=== PATIENT | female | born 1985 | race Hispanic/Latino ===

== ENCOUNTER 2024-11-07 16:09 | Day surgery (SDC) | payer SELFPAY ==
[2024-11-07] MEDS ORDERED: hydrALAZINE 20 MG/ML VIAL SLOW IVP PRN (17:04)
[2024-11-07 17:22] LABS: Glucose, Urine (Dipstick) Normal (Negative); Leukocyte Negative (Negative); Protein, Urine (Dipstick) Negative (Neg-Trace); Specific Gravity, Urine 1.010 (1.005-1.030)
[2024-11-07 17:27] VITALS: BMI 24.2
[2024-11-07 17:47] LABS: Fetal Membranes Rupture No Membranes Rupture (No Rupture)
[2024-11-07] MEDS ORDERED: Ondansetron PF 4 MG/2 ML Vial IVP SCH (18:00)
[2024-11-07] MEDS: Acetaminophen 500 MG TAB PO SCH (19:32)
== END 2024-11-07 20:30 | disposition home or self-care (01) ==
LOC: CSHLD/OP 16:09
PROVIDERS: ATTEND Obstetrics & Gynecology
DX: O47.03 False labor before 37 completed weeks of gestation, third trimester (principal); Z03.71 Encounter for suspected problem with amniotic cavity and membrane ruled out; O09.523 Supervision of elderly multigravida, third trimester; O34.211 Maternal care for low transverse scar from previous cesarean delivery; Z3A.35 35 weeks gestation of pregnancy; Z87.59 Personal history of other complications of pregnancy, childbirth and the puerperium; Z88.1 Allergy status to other antibiotic agents; Z88.0 Allergy status to penicillin; Z88.8 Allergy status to other drugs, medicaments and biological substances; Z79.899 Other long term (current) drug therapy
CPT/HCPCS: 76815; 81003; 84112; 87480; 87510; 87660; 96360; 96361; 99285

== ENCOUNTER 2024-11-30 13:34 | Day surgery (SDC) | payer SELFPAY ==
[2024-11-30] MEDS ORDERED: Acetaminophen 500 MG TAB PO ONE (14:34)
[2024-11-30] MEDS ORDERED: hydrALAZINE 20 MG/ML VIAL SLOW IVP PRN (14:34)
[2024-11-30] MEDS ORDERED: Ondansetron PF 4 MG/2 ML Vial IVP PRN (14:34)
[2024-11-30 15:08] VITALS: BMI 27.8
== END 2024-11-30 16:03 | disposition home or self-care (01) ==
LOC: CSHLD/OP 13:34
PROVIDERS: ATTEND Obstetrics & Gynecology
DX: O47.1 False labor at or after 37 completed weeks of gestation (principal); O99.891 Other specified diseases and conditions complicating pregnancy; R51.9 Headache, unspecified; O09.523 Supervision of elderly multigravida, third trimester; O34.211 Maternal care for low transverse scar from previous cesarean delivery; Z3A.38 38 weeks gestation of pregnancy; Z88.1 Allergy status to other antibiotic agents; Z88.0 Allergy status to penicillin; Z91.010 Allergy to peanuts; Z88.8 Allergy status to other drugs, medicaments and biological substances; Z79.899 Other long term (current) drug therapy
CPT/HCPCS: 96360; 99284

== ENCOUNTER 2024-12-01 10:12 | Inpatient (IN) | payer MEDICAID, OTHER, SELFPAY ==
[2024-11-30 12:45] LABS: Hematocrit 31.7 % (34.9-44.5); Hemoglobin 9.9 g/dL (12.0-15.5); Platelet Count 226 10x3/uL (150-450)
[2024-11-30 13:16] LABS: Syphilis Antibody Index 0.05 S/CO (<1.00 Non-Reactive)
[2024-11-30 13:17] LABS: HIV (1/2) Antibody/Antigen Non-Reactive (NonReactive); HIV 1/2 INDEX 0.09 S/CO (<1.00); Hep B Surf Ag Non-Reactive S/CO (NonReactive)
[~2024-12-01 10:12] MED LIST: Bicitra 30 ML UDCUP PO PRN; Ondansetron PF 4 MG/2 ML Vial IVP PRN; hydrALAZINE 20 MG/ML VIAL SLOW IVP PRN
[2024-12-01 11:42] VITALS: BMI 26.1
[2024-12-01] MEDS: Acetaminophen 325 MG TAB PO SCH (11:58)
[2024-12-01] MEDS: Famotidine/PF 20 mg/2ml Vial SLOW IVP PRN (12:01)
[2024-12-01] MEDS ORDERED: Clindamycin/D5W 900 MG in Premix 1 BAG IVPB SCH (12:30)
[2024-12-01] MEDS ORDERED: diphenhydrAMINE 50 MG/ML VIAL IVP PRN (12:33)
[2024-12-01] MEDS ORDERED: Ondansetron PF 4 MG/2 ML Vial IVP PRN ×3 (12:33→13:39)
[2024-12-01] MEDS ORDERED: HYDROmorphone 0.5 MG/0.5 ML SYRINGE SLOW IVP PRN (12:33)
[2024-12-01] MEDS ORDERED: Meperidine HCl/PF 25 MG (1 mL) VIAL SLOW IVP PRN (12:33)
[2024-12-01] MEDS ORDERED: Ketorolac Tromethamine 30 MG (1 mL) VIAL IVP PRN (12:33)
[2024-12-01] MEDS ORDERED: Communication Order-Pharmacy FS SCH (12:45)
[2024-12-01] MEDS ORDERED: Ketorolac Tromethamine 30 MG (1 mL) VIAL IVP SCH (12:45)
[2024-12-01] MEDS ORDERED: Simethicone Chewable 80 MG TAB PO PRN (13:39)
[2024-12-01] MEDS ORDERED: hydrALAZINE 20 MG/ML VIAL SLOW IVP PRN (13:39)
[2024-12-01] MEDS ORDERED: Oxytocin 30 units/NS 500 ML 500 ML IV SCH (13:45)
[2024-12-01] MEDS: Oxytocin 30 units/NS 500 ML 500 ML IV SCH (14:19)
[2024-12-01] MEDS ORDERED: HYDROcodone/Acetaminophen 10/325 mg Tablet PO PRN (14:22)
[2024-12-01] MEDS: Oxytocin 10 UNITS/ML VIAL ONE (16:20)
[2024-12-01] MEDS: PHENYLEPHRINE-NS 100 MCG/ML 10 ML SYRINGE ONE (16:20)
[2024-12-01] MEDS: Erythromycin Base 0.5% Oint 1 GM TUBE ONE (16:21)
[2024-12-01] MEDS: Ondansetron PF 4 MG/2 ML Vial ONE (16:21)
[2024-12-01] MEDS: Methylergonovine 0.2 MG TAB PO SCH (16:22)
[2024-12-01] MEDS: Ketorolac Tromethamine 30 MG (1 mL) VIAL ONE (16:22)
[2024-12-01] MEDS: Boostrix 0.5 ML (Tdap) VIAL (>/=7 yrs of age) IM ONE (16:23)
[2024-12-01] MEDS: Gentamicin Sulfate 100 MG in Premix 1 BAG IVPB SCH (16:50)
[2024-12-01] MEDS: Ketorolac Tromethamine 30 MG (1 mL) VIAL IVP PRN (19:50)
[2024-12-02] MEDS ORDERED: Acetaminophen 325 MG TAB PO PRN (00:45)
[2024-12-02 04:19] LABS: Hematocrit 29.7 % (34.9-44.5); Hemoglobin 9.6 g/dL (12.0-15.5); Mean Corpuscular Hemoglobin 25.3 pg (27.0-33.0); Mean Corpuscular Volume 78.4 fL (81.6-98.3); Platelet Count 183 10x3/uL (150-450); Red Blood Cell (RBC) Count 3.79 10x6/uL (3.90-5.03); White Blood Cell (WBC) Count 7.40 10x3/uL (3.5-10.5)
[2024-12-02] MEDS ORDERED: Sertraline 25 MG TAB PO SCH (09:00)
[2024-12-02] MEDS: HYDROcodone/Acetaminophen 10/325 mg Tablet PO PRN (09:15)
[2024-12-02] MEDS: Ibuprofen 800 MG TAB PO SCH (21:43)
[2024-12-03 08:27] VITALS: BP 111/58; TEMP 99
[2024-12-03] MEDS: Pantoprazole 40 MG DR.TAB PO SCH (09:43)
== END 2024-12-03 12:05 | disposition home or self-care (01) | DRG 788 ==
LOC: CSHANTE 10:12 → CSHLD 13:58 → CSHPED 15:45
PROVIDERS: ADMIT Obstetrics & Gynecology; ATTEND Obstetrics & Gynecology
PROC: 4A1HXCZ Monitoring of Products of Conception, Cardiac Rate, External Approach (ICD-10-PCS; principal; 2024-12-01)
PROC: 10D00Z1 Extraction of Products of Conception, Low, Open Approach (ICD-10-PCS; principal; 2024-12-01)
DX: O34.211 Maternal care for low transverse scar from previous cesarean delivery (principal); Z3A.39 39 weeks gestation of pregnancy; Z37.0 Single live birth
CPT/HCPCS: 36415; 51702; 85014; 85018; 85027; 85049; 86780; 86850; 86900; 86901; 87340; 87389; J1308; J1580; J1885; J2250; J2274; J2405; J2590; J3010

== ENCOUNTER 2024-12-07 15:18 | Emergency (ER) | payer OTHER, SELFPAY ==
[2024-12-07 16:22] LABS: #Basophils 0.03 10x3/uL (0.0-0.2); #Eosinophils 0.11 10x3/uL (0.0-0.5); #Monocytes 0.56 10x3/uL (0.0-1.1); #Neutrophils 4.42 10x3/uL (1.5-8.4); %Basophils 0.4 % (0.0-2.0); %Eosinophils 1.4 % (0.0-6.0); %Lymphocytes 33.7 % (18.0-47.0); %Monocytes 7.2 % (0.0-10.0); %Neutrophils 56.9 % (40.0-75.0); Hematocrit 34.1 % (34.9-44.5); Hemoglobin 10.5 g/dL (12.0-15.5); Mean Corpuscular Hemoglobin 24.9 pg (27.0-33.0); Mean Corpuscular Volume 80.8 fL (81.6-98.3); Platelet Count 426 10x3/uL (150-450); Red Blood Cell (RBC) Count 4.22 10x6/uL (3.90-5.03); White Blood Cell (WBC) Count 7.77 10x3/uL (3.5-10.5)
[2024-12-07 16:42] LABS: ALT (SGPT) 47 U/L (Less than 34); AST (SGOT) 51 U/L (11-34); Albumin 3.5 g/dL (3.1-4.5); Alkaline Phosphatase 137 U/L (40-110); Anion Gap 11 mmol/L (10-20); BUN (Urea Nitrogen) 17 mg/dL (7.0-18.7); Bilirubin, Total 0.2 mg/dL (0.3-1.2); Calc. Creatinine Clearance 0 mL/min (70-130); Calcium 9.4 mg/dL (7.8-10.44); Carbon Dioxide 24 mmol/L (22-29); Chloride 105 mmol/L (98-107); Globulin 4.4 g/dL (2.4-3.5); Glucose 102 mg/dL (70-105); Lipase 43 U/L (8-78); Potassium 4.1 mmol/L (3.5-5.1); Sodium 136 mmol/L (136-145)
== END 2024-12-07 18:26 | disposition home or self-care (01) ==
LOC: CSHERS 15:18 → EEVIPCON 15:18 → CSHERS 18:26
DX: R42 Dizziness and giddiness (principal); N64.4 Mastodynia
CPT/HCPCS: 76705; 80053; 83690; 85025; 93005